=== PATIENT | female | born 1940 | race Caucasian/White ===

== ENCOUNTER 2016-10-09 08:38 | Emergency (ER) | payer MEDICARE, MEDICAID ==
[~2016-10-09] VITALS: Ht 149.9 cm; Wt 52.6 kg
[2016-10-09] MEDS ORDERED: METF500T4 PO (08:53)
[2016-10-09 08:56] LABS: GLUCOSE,POINT OF CARE 116 MG/DL (70-110)
[2016-10-09 11:50] VITALS: BP 160/66
== END 2016-10-09 11:51 | disposition home or self-care (01) ==
LOC: EMS 08:42
DX: S22.32XA Fracture of one rib, left side, initial encounter for closed fracture (principal); M25.561 Pain in right knee; M25.562 Pain in left knee; E11.9 Type 2 diabetes mellitus without complications; V00.131A Fall from skateboard, initial encounter; Y93.51 Activity, roller skating (inline) and skateboarding; Y92.89 Other specified places as the place of occurrence of the external cause; Y99.8 Other external cause status
CPT/HCPCS: 71101; 82962; 99284

== ENCOUNTER 2024-02-01 12:02 | Inpatient (IN) | payer MEDICAID, MEDICARE ==
[~2024-02-01] VITALS: Ht 157.5 cm; Wt 45.2 kg
[~2024-02-01 12:02] MED LIST: METF-1211 PO
[2024-02-01] MEDS ORDERED: LOSA-381 PO (13:00)
[2024-02-01] MEDS ORDERED: TRAZ-257 PO (13:00)
[2024-02-01 13:05] LABS: BASOPHILS % (AUTO) 0.4 % (0.0-2.0); EOSINOPHILS % (AUTO) 2.9 % (1.0-6.0); HEMATOCRIT 27.6 % (36-46); HEMOGLOBIN 8.9 g/dL (12.0-16.0); LYMPHOCYTES # (AUTO) 2.6 K/uL (1.0-4.8); LYMPHOCYTES % (AUTO) 20.9 % (22.0-44.0); MEAN CORPUSCULAR HEMOGLOBIN 29.6 pg (26.0-34.0); MEAN CORPUSCULAR HGB CONC 32.3 G/dL (31.0-37.0); MEAN CORPUSCULAR VOLUME 92 fL (80-100); MONOCYTES # (AUTO) 0.7 K/uL (0.1-1.0); MONOCYTES % (AUTO) 5.6 % (2.0-9.0); NEUTROPHILS # (AUTO) 8.6 K/uL (1.8-7.7); NEUTROPHILS % (AUTO) 70.2 % (40.0-70.0); PLATELET COUNT (AUTO) 258 K/uL (150-450); RED BLOOD CELL COUNT(AUTO) 3.02 MIL/uL (4.00-5.20); RED CELL DISTRIBUTION WIDTH 15.1 % (11.5-14.5); WHITE BLOOD COUNT (AUTO) 12.2 K/uL (4.5-11.0)
[2024-02-01 13:18] LABS: PROTHROMBIN TIME 10.6 SEC (9.4-11.6)
[2024-02-01 13:23] LABS: TROPONIN I-HIGH SENSITIVITY 12 ng/L (<51)
[2024-02-01 13:30] LABS: ANION GAP 10 mmol/L (8-16); CALCIUM, TOTAL 7.9 mg/dL (8.8-10.5); CARBON DIOXIDE 23 mmol/L (22-29); CHLORIDE 107 mmol/L (98-107); CREATININE 0.83 mg/dL (0.60-1.30); GLOMERULAR FILTR. RATE CALC > 60 mL/min (>60); GLUCOSE,RANDOM 111 mg/dL (70-110); POTASSIUM 3.6 mmol/L (3.5-5.1); SODIUM SERUM 140 mmol/L (136-145); UREA NITROGEN, BLOOD 29 mg/dL (7-18)
[2024-02-01 13:37] LABS: ALANINE AMINOTRANSFERASE 15 U/L (12-78); ALBUMIN 2.4 g/dL (3.4-5.0); ALKALINE PHOSPHATASE 76 U/L (46-116); ASPARTATE AMINOTRANSFERASE 12 U/L (15-37); BILIRUBIN,TOTAL 0.1 mg/dL (0.1-1.0); TOTAL PROTEIN, SERUM 5.5 g/dL (6.4-8.2)
[2024-02-01] MEDS ORDERED: IOHEXOL 350 MG/ML 100 ML VIAL ONE (14:26)
[2024-02-01] MEDS ORDERED: SODIUM CHLORIDE 0.9% 100 ML ONE (14:26)
[2024-02-01] MEDS ORDERED: 0.9% SODIUM CHLORIDE 10 ML SYRINGE IVP ONE (14:26)
[2024-02-01] MEDS: MORPHINE SULFATE 2 MG/ML SYRINGE IVP ONE (14:33)
[2024-02-01] MEDS: ONDANSETRON HCL 4 MG/2 ML VIAL IVP ONE (14:33)
[2024-02-01 18:03] LABS: APPEARANCE,URINE HAZY (CLEAR); BILIRUBIN,URINE NEGATIVE (NEGATIVE); COLOR,URINE LIGHT YELLOW (YELLOW); GLUCOSE, URINE (UA) NEGATIVE (NEGATIVE); KETONES,URINE NEGATIVE (NEGATIVE); LEUKOCYTE ESTERASE ,URINE LARGE (NEGATIVE); NITRATE,URINE NEGATIVE (NEGATIVE); OCCULT BLOOD,URINE MODERATE (NEGATIVE); PROTEIN,URINE 30-70 mg/dL (NEGATIVE); UROBILINOGEN,URINE <=1.0 mg/dL (<=1.0)
[2024-02-01 18:14] LABS: BACTERIA,URINE Moderate /HPF (None Seen); RBC,URINE 26-50 /HPF (0-2); SQUAMOUS EPITHELIAL CELL,UR Few /LPF (None Seen); WBC,URINE 51-100 /HPF (0-5)
[2024-02-01 18:32] VITALS: BP 127/43; PULSE 68; RESP 18; TEMP 97.3; O2SAT 98
[2024-02-01 20:00] VITALS: BP 143/58; PULSE 59; RESP 20; TEMP 97.9; O2SAT 97
[2024-02-01] MEDS ORDERED: BISACODYL 10 MG RECTAL RECTAL SUPPOSITORY PR PRN (20:00)
[2024-02-01] MEDS ORDERED: ONDANSETRON HCL 4 MG/2 ML VIAL IVP PRN (20:00)
[2024-02-01] MEDS: LOSARTAN POTASSIUM 25 MG TABLET PO SCH (20:54)
[2024-02-01] MEDS: ENOXAPARIN SODIUM 40 MG/0.4 ML PF SYRINGE SQ SCH (20:54)
[2024-02-01] MEDS ORDERED: SODIUM CHLORIDE 0.9% 500 ML IV ONE (20:58)
[2024-02-01] MEDS: POLYETHYLENE GLYCOL 3350 17 GM PACKET PO SCH (21:01)
[2024-02-01] MEDS: TraZODone HCL 100 MG TABLET PO SCH (21:01)
[2024-02-01] MEDS: CefTRIAXone 1 GM/DEXTROSE 50 ML IV SCH (21:29)
[2024-02-02 05:30] VITALS: BP 115/61; PULSE 61; RESP 18; TEMP 97.6; O2SAT 99
[2024-02-02] MEDS: ACETAMINOPHEN 325 MG TABLET PO PRN (06:10)
[2024-02-02 09:06] VITALS: BP 119/45; PULSE 54; RESP 15; TEMP 98.4; O2SAT 98
[2024-02-02 17:09] VITALS: BP 141/75; PULSE 67; RESP 15; TEMP 98.9; O2SAT 98
[2024-02-02 19:39] VITALS: BP 117/59; PULSE 67; RESP 18; TEMP 98.1; O2SAT 97
[2024-02-03 04:58] VITALS: BP 131/69; PULSE 80; RESP 18; TEMP 98.1; O2SAT 99
[2024-02-03 07:38] VITALS: BP 113/45; PULSE 53; RESP 18; TEMP 98; O2SAT 97
[2024-02-03] MEDS: ETHYL ALCOHOL 62% ANTISEPTIC NASAL SANITIZER 0.6 ML AMPUL NASAL SCH (09:19)
[2024-02-03 15:13] VITALS: BP 106/55; PULSE 74; RESP 20; TEMP 97.2; O2SAT 97
[2024-02-03] MEDS: HYDROCODONE/ACETAMINOPHEN 5-325 MG TABLET PO PRN (15:49)
[2024-02-03 20:00] VITALS: BP 147/53; PULSE 66; RESP 20; TEMP 97.7; O2SAT 98
[2024-02-04 04:00] VITALS: BP 154/64; PULSE 56; RESP 20; TEMP 97.9; O2SAT 98
[2024-02-04 10:30] VITALS: BP 174/67; PULSE 67; RESP 18; TEMP 98.6; O2SAT 96
[2024-02-04] MEDS: HydrALAZINE HCL 20 MG/ML VIAL IVP PRN (11:02)
[2024-02-04 12:00] VITALS: BP 127/58; PULSE 85; RESP 18
[2024-02-04 20:00] VITALS: BP 159/61; PULSE 74; RESP 19; TEMP 99; O2SAT 97
[2024-02-05 05:15] VITALS: BP 153/59; PULSE 69; RESP 18; TEMP 98; O2SAT 97
[2024-02-05 06:54] LABS: BASOPHILS % (AUTO) 0.7 % (0.0-2.0); EOSINOPHILS % (AUTO) 3.9 % (1.0-6.0); HEMATOCRIT 28.2 % (36-46); HEMOGLOBIN 9.5 g/dL (12.0-16.0); LYMPHOCYTES # (AUTO) 1.8 K/uL (1.0-4.8); LYMPHOCYTES % (AUTO) 25.1 % (22.0-44.0); MEAN CORPUSCULAR HEMOGLOBIN 30.9 pg (26.0-34.0); MEAN CORPUSCULAR HGB CONC 33.8 G/dL (31.0-37.0); MEAN CORPUSCULAR VOLUME 92 fL (80-100); MONOCYTES # (AUTO) 0.5 K/uL (0.1-1.0); MONOCYTES % (AUTO) 6.6 % (2.0-9.0); NEUTROPHILS # (AUTO) 4.4 K/uL (1.8-7.7); NEUTROPHILS % (AUTO) 63.7 % (40.0-70.0); PLATELET COUNT (AUTO) 256 K/uL (150-450); RED BLOOD CELL COUNT(AUTO) 3.08 MIL/uL (4.00-5.20); RED CELL DISTRIBUTION WIDTH 15.1 % (11.5-14.5)
[2024-02-05 07:07] LABS: ALANINE AMINOTRANSFERASE 23 U/L (12-78); ALBUMIN 2.6 g/dL (3.4-5.0); ALKALINE PHOSPHATASE 67 U/L (46-116); ANION GAP 9 mmol/L (8-16); ASPARTATE AMINOTRANSFERASE 28 U/L (15-37); BILIRUBIN,TOTAL 0.2 mg/dL (0.1-1.0); CARBON DIOXIDE 24 mmol/L (22-29); CHLORIDE 105 mmol/L (98-107); CREATININE 0.72 mg/dL (0.60-1.30); GLOMERULAR FILTR. RATE CALC > 60 mL/min (>60); GLUCOSE,RANDOM 78 mg/dL (70-110); POTASSIUM 4.1 mmol/L (3.5-5.1); SODIUM SERUM 138 mmol/L (136-145); TOTAL PROTEIN, SERUM 5.7 g/dL (6.4-8.2); UREA NITROGEN, BLOOD 26 mg/dL (7-18)
[2024-02-05 07:32] LABS: HEMOGLOBIN A1C 5.9 % (3.8-5.6)
[2024-02-05 08:09] VITALS: BP 148/62; PULSE 72; RESP 19; TEMP 98; O2SAT 97
[2024-02-05 15:59] VITALS: BP 150/66; PULSE 70; RESP 19; TEMP 98.4; O2SAT 98
[2024-02-05 19:51] VITALS: BP 133/57; PULSE 74; RESP 18; TEMP 98.5; O2SAT 98
[2024-02-06 05:37] VITALS: BP 140/83; PULSE 74; RESP 18; TEMP 97.6; O2SAT 99
[2024-02-06 08:00] VITALS: BP 136/59; PULSE 72; RESP 19; TEMP 98.5; O2SAT 100
[2024-02-06 15:50] VITALS: BP 147/69; PULSE 73; RESP 19; TEMP 98; O2SAT 100
[2024-02-06 20:45] VITALS: BP 129/51; PULSE 72; RESP 18; TEMP 99.1; O2SAT 97
[2024-02-07 05:27] VITALS: BP 154/64; PULSE 67; RESP 16; TEMP 98; O2SAT 98
[2024-02-07 08:16] VITALS: BP 158/66; PULSE 72; RESP 20; TEMP 98; O2SAT 98
[2024-02-07] MEDS ORDERED: AMLO-257 PO (11:55)
[2024-02-07] MEDS ORDERED: Bisacodyl PR (11:55)
[2024-02-07] MEDS ORDERED: POLY17PO62 PO (11:55)
[2024-02-07 15:49] VITALS: BP 108/58; PULSE 72; RESP 20; TEMP 99.2; O2SAT 95
== END 2024-02-07 20:00 | DRG 70 ==
LOC: EMS 12:02 → EDH 18:02 → 6S 18:14 → 6N 02-04 21:52
PROVIDERS: ADMIT Family Medicine; ATTEND Family Medicine
DX: G93.41 Metabolic encephalopathy (principal); E43 Unspecified severe protein-calorie malnutrition; N39.0 Urinary tract infection, site not specified; G91.9 Hydrocephalus, unspecified; Z68.1 Body mass index [BMI] 19.9 or less, adult; G90.8 Other disorders of autonomic nervous system; R62.7 Adult failure to thrive; I10 Essential (primary) hypertension; E11.9 Type 2 diabetes mellitus without complications; K59.00 Constipation, unspecified; M25.512 Pain in left shoulder; F32.A Depression, unspecified; F03.90 Unspecified dementia, unspecified severity, without behavioral disturbance, psychotic disturbance, mood disturbance, and anxiety; G93.89 Other specified disorders of brain; G31.9 Degenerative disease of nervous system, unspecified; Z91.81 History of falling
CPT/HCPCS: 51701; 70450; 71045; 71260; 72125; 72193; 74160; 80053; 81001; 83036; 83735; 84484; 85025; 85610; 85730; 87081; 87086; 87186; 87481; 93005; 99285; J0360; J0696; J1650; J2270; J2405; J7040; J7050; 36415-L1; 36415-TC